=== PATIENT | female | born 1995 | race Caucasian/White ===

== ENCOUNTER 2017-07-08 21:51 | Emergency (ER) | payer OTHER ==
[~2017-07-08] VITALS: Ht 162.6 cm; Wt 81.8 kg
[2017-07-08 21:57] VITALS: BP 145/94; PULSE 110; RESP 20; O2SAT 97
[2017-07-08 22:34] LABS: BASOPHILS % (AUTO) 0.3 % (0-3); EOSINOPHILS % (AUTO) 2.3 % (0-5); MONOCYTES % (AUTO) 7.9 % (4-12); Mean Corpuscular Hemoglobin 27.8 pg (27.0-35.0); Mean Corpuscular Volume 83.8 fL (81-100); NEUTROPHILS % (AUTO) 61.4 % (40-74); Platelet Count 363 bil/L (150-400)
[2017-07-08 23:21] LABS: TROPONIN T 0.01 ug/L (0.0-0.011)
--- NOTE | 2017-07-08 23:43 | ED.REPORT ---
HPI-Syncope Date of Service Jul 08, 2017 ED Provider: Dorian Montanez DO Pt is 21 year old female with a history of unmedicated schizophrenia and anxiety who presents to the ED after a syncopal episode onset 15:30. She c/o associated anxiety, shaking, LOC, ear ringing bilaterally, sharp head pain, and stress. She denies leg swelling, SOB, and abdominal pain. Pt reports that she was talking with her landlord today about being evicted when she started experiencing her symptoms. The pt states that she has had syncopal episodes previously, but not secondary to anxiety. She denies . Nursing Notes Stated Complaint: PASSED OUT, IRREGULAR HEART BEAT Chief Complaint: General Complaint Nursing Notes Reviewed: Yes Allergies: Coded Allergies: No Known Allergies (Unverified , 07/08/17) General Time Seen by Provider: 23:43 Chief Complaint Lost consciousness Hx Obtained From: Patient Arrived By: Walk-in Onset Occurred: 5 - 8 hours ago Symptom Duration: Duration unknown Severity: Current: No pain currently Severity: Maximum: No pain Recent Healthcare: No recent doctor visit, No recent hospitalization Similar Sx Previous: No Past Medical History Past Medical History Anxiety Thyroiditis Reports: Schizophrenia Past Surgical History Denies Smoking History Unknown if Ever Smoker Social History Drug Use: THC Other Social History: Good social support Ambulatory Status Independent Review of Systems + Sharp head pain Ears / Nose / Throat: Reports: Ear ringing bilateral Respiratory: Denies: Shortness of breath GI: Denies: Abdominal pain Musculoskeletal: Denies: Extremity swelling Neurologic: Reports: Change LOC, Shaking, Syncope Psychiatric: Reports: Anxiety, Stress Complete sys rev & neg: except as marked. Physical Exam Initial Vital Signs Vital Signs (First) Date Time Temp Pulse Resp B/P Pulse Ox O2 Delivery O2 Flow Rate FiO2 07/08/17 21:57 37.2 110 20 145/94 97 Room Air Initial VS: Reviewed Head / Eyes: Atraumatic, Normocephalic Abdomen / GI: Soft, Non-tender Upper Extremities: Vascular intact, Neuro intact Skin: Warm, Dry, No cyanosis Psychiatric: Mood/affect normal, Behavior normal General/Constitutional: Awake, Alert Respiratory / Chest: Atraumatic, Breath sounds NL, Breath sounds = bilat Cardiovascular: Heart rate NL, Regular rhythm, Heart sounds NL Lower Extremity / Pelvis / MS: Atraumatic, Full range of motion Neurologic: Oriented X3, Speech NL, No motor deficits, No sensory deficits Neck: Atraumatic, Full range of motion Thyroidmegaly Interpretation & Diagnostics Lab Results Interpretation Result Diagram: 07/08/17 2231 07/08/17 223 Test 07/08/17 22:31 07/09/17 00:15 White Blood Count 15.5th/mm3 (3.8-10.1) Red Blood Count 4.68mil/mm3 (3.90-5.20) Hemoglobin 13.0g/dL (12.0-15.6) Hematocrit 39.2% (35.0-46.0) Mean Corpuscular Volume 83.8fL (81-100) Mean Corpuscular Hemoglobin 27.8pg (27.0-35.0) Mean Corpuscular Hemoglobin Concent 33.2% (32.0-37.0) Red Cell Distribution Width 13.0% (12.3-15.4) Platelet Count 363bil/L (150-400) Neutrophils (%) (Auto) 61.4% (40-74) Lymphocytes (%) (Auto) 27.8% (14-46) Monocytes (%) (Auto) 7.9% (4-12) Eosinophils (%) (Auto) 2.3% (0-5) Basophils (%) (Auto) 0.3% (0-3) D-Dimer < 0.50mg/L FEU (<0.50) Sodium Level 139mEq/L (134-144) Potassium Level 3.9mEq/L (3.5-5.2) Chloride Level 103mEq/L (97-108) Carbon Dioxide Level 21mmol/L (18-29) Blood Urea Nitrogen 10mg/dL (6-20) Creatinine 0.53mg/dL (0.57-1.00) Estimat Glomerular Filtration Rate 209mL/min (>59) Glucose Level 108mg/dL (60-99) Calcium Level 9.4mg/dL (8.5-10.1) Magnesium Level 2.0mg/dL (1.6-2.6) Total Bilirubin 0.2mg/dL (0.0-1.2) Aspartate Amino Transf (AST/SGOT) 19U/L (0-50) Alanine Aminotransferase (ALT/SGPT) 11U/L (0-32) Alkaline Phosphatase 65U/L (25-150) Troponin T 0.010ug/L (0.0-0.011) Total Protein 7.5g/dL (6.4-8.4) Albumin 4.4g/dL (3.4-5.0) Thyroid Stimulating Hormone (TSH) 4.240uIU/mL (0.450-4.500) Hold Carlos Top Tube Received (Received) Urine Color Yellow (YELLOW) Urine Appearance Clear (CLEAR,HAZY) Urine pH 7.5 (5.0-8.0) Urine Specific [place] 1.010 (1.003-1.035) Urine Protein Negativemg/dL (NEG,TRACE) Urine Glucose (UA) Negativemg/dL (NEGATIVE) Urine Ketones Negativemg/dL (NEGATIVE) Urine Occult Blood Negative (NEGATIVE) Urine Nitrite Negative (NEGATIVE) Urine Bilirubin Negative (NEGATIVE) Urine Urobilinogen Normalmg/dL (NORMAL) Urine Leukocyte Esterase Negative (NEGATIVE) Urine RBC 0-2/hpf (0-2) Urine WBC 0-5/hpf (0-5) Urine Epithelial Cells Few/hpf (NONE-MOD) Urine Crystals None seen (NONE SEEN) Urine Bacteria Few/hpf (NONE-FEW) Urine Hyaline Casts None/lpf (NONE) Urine Granular Casts None seen (NONE SEEN) Urine Waxy Casts None seen (NONE SEEN) Urine Red Blood Cell Casts None seen (NONE SEEN) Urine White Blood Cell Casts None seen (NONE SEEN) Urine Mucus Present (None Seen) Urine Trichomonas None seen (NONE SEEN) Urine Yeast None (NONE SEEN) Urinalysis Comment None Urine HCG, Qualitative Negative (Negative) Hold Urine Received (Received) ECG Interpretation ECG Interpretation: Sinus rhythm with a rate of 62 Time: 23:57 Interpreted by: ED physician Re-Eval/Medical Decision Med Decision/Clinical Course EKG was normal. Rhythm strip shows sinus. D-dimer was negative. Low risk well score. PE highly unlikely. Acute coronary syndrome ruled out with troponin. Troponin is greater than 6 hours from the onset. Overall I expect this was anxiety related syncope as it has happened to her before. She would like to try something for this. I will place her on some hydroxyzine. I do recommend close outpatient follow-up. Source of Hx: Old records Re-Evaluation/Progress : Time of Eval: 00:45 Re-Evaluation/Progress Note: Pt rechecked. Informed pt of plan for discharge. Pt understands and agrees with plan for discharge. F/U instructions and RTER warnings given. All questions addressed. Counseled Regarding: Diagnosis, Lab results, Need for follow-up, When/why to return to ED Discharge & Departure Impression: Primary Impression: Syncope Syncope type: unspecified Qualified Code: R55 - Syncope and collapse Additional Impression: Anxiety Disposition: Home Discharge Condition All VS Reviewed: Yes Condition: Stable Patient Instructions: Anxiety (ED), Syncope (DC) Additional Instructions: Your EKG was normal. Your blood clot test was negative and your labs were reassuring. Take Hydroxyzine every 8 hours as needs for anxiety. Stand slowly and drink plenty of liquids. Call your primary care provider tomorrow for a follow up appointment next week. Return to the Emergency Department for any new or worrisome symptoms. The hydroxyzine can be sedating. Do not drive, operate machinery or consume alcohol or any other sedatives while taking the hydroxyzine. Referrals: Chayito Andrew MD (PCP) Scribe Attestation Portions of this note were transcribed by Marsha Church. I, Dr. Montanez personally performed the history, physical exam and medical decision-making; I reviewed and confirmed the accuracy of the information in the transcribed note. Signed by : Jaxon Clark, 07/08/17. copies to: Chayito Andrew MD, Todd P DO Jul 08, 2017 23:43 Marsha Chan Jul 08, 2017 23:52
[2017-07-09 01:13] LABS: APPEARANCE,URINE CLEAR (CLEAR,HAZY); COLOR,URINE YELLOW (YELLOW); OCCULT BLOOD,URINE NEGATIVE (NEGATIVE); PH,URINE 7.5 (5.0-8.0); UROBILINOGEN,URINE NORMAL (NORMAL)
[2017-07-09 01:18] VITALS: BP 112/68; PULSE 68; RESP 14; O2SAT 99
== END 2017-07-09 01:19 | disposition home or self-care (01) ==
LOC: SED 21:51
DX: R55 Syncope and collapse (principal); F41.9 Anxiety disorder, unspecified; E01.0 Iodine-deficiency related diffuse (endemic) goiter